=== PATIENT | female | born 1985 | race Hispanic/Latino ===

== ENCOUNTER 2016-04-29 05:39 | Inpatient (IN) | payer MEDICAID ==
[~2016-04-29] VITALS: Ht 152.4 cm; Wt 73.9 kg
[~2016-04-29 05:39] MED LIST: ASCO500T8 PO; Benzocaine TP; Docusate Sodium PO; FERR-74 PO; Hydrocodone/Acetaminophen PO; Ibuprofen PO; Lanolin TP; PREN1TAB73 PO; TUCPAD TP
[2016-04-29] MEDS ORDERED: Lactated Ringer's 1,000 ML IV SCH ×2 (09:48→10:43)
[2016-04-29] MEDS ORDERED: Lactated Ringer's 1,000 ML IV PRN (09:48)
[2016-04-29] MEDS ORDERED: Methylergonovine 0.2 mg/mL Inj IM PRN ×2 (09:50→15:40)
[2016-04-29] MEDS ORDERED: Ondansetron 2 mg/mL 2 mL Inj IVPUSH PRN ×2 (09:50→10:45)
[2016-04-29] MEDS ORDERED: Sodium Chloride LOK Flush 10 mL Syringe IVFLUSH PRN (09:50)
[2016-04-29] MEDS ORDERED: Hemorrhage Kit, Post Partum XX ONE ×2 (09:50→15:40)
[2016-04-29] MEDS ORDERED: fentaNYL-PF 50 mCg/mL 2 mL Inj IVPUSH PRN (09:50)
[2016-04-29] MEDS ORDERED: Oxytocin 10 Unit/mL Inj IM PRN ×2 (09:50→15:40)
[2016-04-29] MEDS ORDERED: Oxytocin 30 Units/500 mL LR 30 UNITS in IV Premix 1 EACH IV PRN ×2 (09:50→15:40)
[2016-04-29] MEDS ORDERED: Carboprost 250 mCg/mL Inj IM PRN ×2 (09:50→15:40)
[2016-04-29 10:27] LABS: Mean Corpuscular Volume 82.5 fL (81-100)
[2016-04-29] MEDS ORDERED: Lactated Ringer's 500 ML IV ONE (10:43)
[2016-04-29] MEDS ORDERED: fentaNYL 2 mCg/mL-Bupiv 0.125% 100 ML EPIDURAL SCH (10:45)
[2016-04-29] MEDS ORDERED: EPHEDrine Sulfate 50 mg/mL Inj IVPUSH PRN (10:45)
[2016-04-29] MEDS ORDERED: Atropine 1 mg/10 mL (Code) Syringe IVPUSH PRN (10:45)
[2016-04-29] MEDS: Lactated Ringer's 1,000 ML IV SCH ×2 (15:39→23:39)
[2016-04-29] MEDS ORDERED: Benzocaine (Dermoplast) 20% 60 Gm Spray TOPICAL PRN (15:40)
[2016-04-29] MEDS ORDERED: LANOlin HPA 7 Gm Ointment TOPICAL PRN (15:40)
[2016-04-29] MEDS ORDERED: Witch Hazel-Glycerin Pads TOPICAL PRN (15:40)
--- NOTE | 2016-04-29 16:01 | PCM.HPOB ---
Subjective Date of Service: Apr 29, 2016 Referring Provider: Admitting Physician: Michelle De MD Primary Care Physician: Michelle De MD Attending Physician: Michelle De MD Chief Complaint Active labor at 39 1//2 weeks History of Present History of Present Illness Patient is a very pleasant 31-year-old SA 1 L3 who has had regular care and woke at 0400 hrs. today with contractions. These picked up over the next several hours and she came to the center around breakfast. She was 2 cm and 75% effaced at that point with reassuring heart rate, and her membranes were intact. She got up and ambulated over the next several hours and progressed to 3 cm and was admitted. Pitocin augmentation was started as her contractions were still every 4-5 minutes apart and she got to Pitocin 7 mU/m. I came in and did artificial rupture of membranes for clear fluid at 1326 hrs. and she was 4-5 cm dilated at that point and this really picked up her contractions. heart rate baseline was in the 130s to 140s with good [id number] variability. She had consented for an epidural prior to this but was still coping well and did not want this at that point. Vaginal delivery was anticipated and estimated weight was 7-7-1/2 pounds. Weight gain in the has been 30 pounds and blood pressures have been normotensive throughout the . She does not have any history of gestational diabetes. OB History: (5), Term (3), (1), Living (3) Obstetrical Complications: None Past Medical History Obstetrical History: 1. She had a miscarriage in 2008 which passed spontaneously with no complications in the early first trimester. 2. Her first baby was born 11/10/2007 at 39-1/2 weeks gestational age. She had 17 hours of labor with an epidural and went onto spontaneous vaginal delivery of a live born female infant weighing 6-1/2 pounds. This was a healthy baby in and baby's name was " Roula". 3. Her next baby was born 12/26/2012 at 39 weeks gestational age with around 7 hours of labor. She had spontaneous vaginal delivery of a live born female infant weighing 6 lbs. 1 oz. She had retained products of placenta with manual removal at the bedside. Baby was healthy and her name was 4. Next baby was born 06/25/2014 at 40-1/2 weeks gestational age with around 5 hours of labor. She had spontaneous vaginal delivery of a live born female weighing 6 lbs. 13 oz. and she did have an epidural with this baby. and baby were healthy and her name is Ml Gynecologic History: She has not had any abnormal Pap smears or any STD's. Medical History: She has hayfever and environmental allergies with some intermittent lower back pain. She has had mild depression and anxiety tendencies and intermittent migraine headaches. She also had bilateral myringotomy tubes at the age of 13 for chronic ear infections. Surgical History: Her only surgical procedure has been bilateral myringotomy tubes placed at the age of 13 for recurrent otitis media. Social History: She is and lives with her . She has grade 8 education and is a aiic-pn-sdnu mother. She does also pick berries seasonally. Hx Tobacco Use: No Hx Alcohol Use: No Hx Substance Use: No Past Family History Living Arrangement: with Family Genetic Screening/Counseling Genetic Screening/Counseling: Negative Baby father-had child w defect: No Review of Systems Constitutional: Y: Change of appitite, Fever, Weakness Eyes: Denies: Blurred Vision, Double Vision, Vision Changes ENT: Denies: Dental Problems, Ear Pain, Nasal Congestion, Throat Pain, Ulcers/ Sores in Mouth Cardiovascular: Denies: Chest Pain Respiratory: Denies: Cough, SOB with Exertion Gastrointestinal: Denies: Abdominal Pain, Constipation, Diarrhea, Heartburn, Nausea, Vomiting Genitourinary: Denies: Dysuria, Hematuria Musculoskeletal: Denies: Redness, Swelling Skin/Breasts: Denies: Bruising, Discharge Skin: Denies: Jaundice Neurological: Denies: Change in Speech, Dizziness Psychologic: Denies: Agitation, Anxious, Apprehensive, Depression Hematologic: Denies: Adenopathy Allergy Coded Allergies: No Known Allergies (Verified Allergy, Unknown, 04/29/16) Exam Vital Signs Vital signs reviewed and are stable. Blood pressure 93/62-108/61 range. Heart rate 72-80 range and she is afebrile. Constitutional: Well-developed, Well-nourished, Normal habitus HEENT: PERRLA, Mucous Membr Moist/[place] Lungs: Clear to Auscultation, Normal Air Movement Heart: Regular Rate/Rhythm, Normal S1, Normal S2 Abdomen: Gravid, Normal bowel sounds, Soft, No tenderness Lymphatic: Normal: Neck Palpation of Nodes Extremities: Pulses Palpable x4, Warm, No Edema Neurological/Psychiatric: Alert, Oriented X3, No Acute Distress Neuro: Grossly Neurologically Intact Labs/Diagnostics Labs Her blood type is B+ with antibody screen being negative. Pap was normal. She is immune to varicella and rubella is also immune. RPR was nonreactive. Urine culture was negative. HIV was negative. Hepatitis B surface antigen was negative. Hepatitis C was less than 0.1. GC chlamydia was negative. HSV type I was positive for type II was negative. TSH was normal at 0.574. GGT was normal at 131 and group B strep was negative. Maternal Blood Type: B Hx Rho(D) Immune Globulin: No Antibody Screen: negative Group B Strep Results: Negative Previous Infant with GBS: No Rubella: Immune Lab History: Negative for: Hx Chicken Pox, Hx Gonorrhea, Hx HIV, Hx Herpes, Hx Syphilis OB Intrapartum Assessment/Plan Assessment Patient is a very pleasant 31-year-old SA 1 L3 at 39-1/2 weeks in active labor. Some Pitocin augmentation has been started and she is considering epidural. heart rate is reactive with baseline in the 130 to 140s and she has clear amniotic fluid on AROM. Estimated weight is around 7-1/2 pounds. Vaginal delivery is anticipated. Mother's coping well with her labor pains thus far. Problems: (1) with 39 completed weeks gestation Status: Acute ICD Code: Z3A.39 Pain Evaluation: Adequate Pain Control Michelle De MD Apr 29, 2016 15:56
--- NOTE | 2016-04-29 16:08 | PCM.OBVAG ---
Vaginal Delivery Date of Service Apr 29, 2016 Pre Operative Diagnosis Pre Operative Diagnosis 1. at 39-1/2 weeks with spontaneous labor 2. Pitocin augmentation of labor with AROM for clear fluid 3. Spontaneous vaginal delivery of a live born male infant Post Operative Diagnosis Post Operative Diagnosis 1. at 39-1/2 weeks with spontaneous labor 2. Pitocin augmentation of labor with AROM for clear fluid 3. of live born male Procedure Obstetical Procedure: Normal Spontaneous Vaginal Delivery, Repair of Perineal Tear (1st degree) Rn Digestive/Manager Of Case Management Provider and Manager Of Case Management: Dr. Michelle De Indication for Procedure Induction: Active labor, Pitocin augmentation, AROM, Progressed normally through labor Findings Obstetrical Findings: (Male), Cord (3 Vessel), Presentation (ESTELITA), 1 minute (9), 5 minutes (9), Placenta (Intact/Normal), Perineal Laceration (1st degree) Analgesia/Medications Obstetrical Anesthesia: IV pain medication, Local Procedure Details Procedure Details Patient is a very pleasant 31-year-old SA 1 L3 who has had regular care and an EDC of 05/02/2016 based on an 8 week ultrasound. Weight gain in the has been around 30 pounds and she has been normotensive throughout the with no gestational diabetes. She was admitted earlier today in labor and Pitocin augmentation was commenced and went to a maximum of 7 mU/m. AROM was done at 1326 hrs. for clear fluid and some normal show. She was 4 cm at that point and 90% effaced with vertex presentation at - 1 to spines. She progressed very rapidly over the next hour and did have fentanyl 50 g IV at 1400 hrs. She reached complete dilation at 1433 hrs. She went onto spontaneous vaginal delivery of a live born male with Apgars of 9 at 1 minute and 9 at 5 minutes. weight is pending at time of this dictation but is clinically 7-1/2-8 pound range. Placenta delivered intact with a three-vessel cord at 1447 hrs. Mother sustained a first-degree tear to the perineum which was repaired with 3-0 Vicryl to achieve good cosmesis and hemostasis. She also had a small first-degree tear to the clitoral merino which was somewhat vascular which was repaired with 4-0 Vicryl to achieve good cosmesis and hemostasis. Estimated blood loss at time of delivery was 350 mils. Baby was placed onto the maternal abdomen after delivery and delayed cord clamping was employed. Mother is intending to breast-feed and routine care is anticipated. Her first stage of labor was around 4-1/2 hours, second stage 11 minutes, and third stage was 3 minutes. Specimen Placenta appeared intact and was for routine disposal Blood Loss & Administration Estimated Blood Loss: 350 Blood Admin during procedure: No Post Procedure Plan Post delivery Condition: Mom stable Michelle De MD Apr 29, 2016 16:08
[2016-04-29] MEDS: HYDROcodone-APAP 5-325 mg Tablet PO PRN ×2 (16:34→20:25)
[2016-04-30 06:56] LABS: Mean Corpuscular Hemoglobin 27.2 pg (27.0-35.0); Mean Corpuscular Volume 83.9 fL (81-100)
[2016-04-30] MEDS: Lactated Ringer's 1,000 ML IV SCH (07:39)
[2016-04-30] MEDS: HYDROcodone-APAP 5-325 mg Tablet PO PRN ×3 (08:24→16:09)
--- NOTE | 2016-04-30 10:19 | PCM.DC.OB ---
Obstetrical Discharge Summary Date of Service Apr 30, 2016 Date of hospital admission Apr 29, 2016 at 08:03 Date of Discharge: Apr 30, 2016 Providers Admitting Physician: Michelle De MD Primary Care Physician: Michelle De MD Attending Physician: Michelle De MD Diagnosis at Time of Discharge 1. at 39 1/2 weeks with spontaneous labor 2. Pitocin augmentation of labor with AROM 3. of LBM Problems: (1) with 39 completed weeks gestation Status: Resolved ICD Code: Z3A.39 (2) (spontaneous vaginal delivery) Onset Date: 06/25/2014 Status: Acute ICD Code: O80 Brief History and Physical: Patient is a very pleasant 31-year-old SA 1 L3 who has had regular care and woke at 0400 hrs. today with contractions. These picked up over the next several hours and she came to the center around breakfast. She was 2 cm and 75% effaced at that point with reassuring heart rate, and her membranes were intact. She got up and ambulated over the next several hours and progressed to 3 cm and was admitted. Pitocin augmentation was started as her contractions were still every 4-5 minutes apart and she got to Pitocin 7 mU/m. I came in and did artificial rupture of membranes for clear fluid at 1326 hrs. and she was 4-5 cm dilated at that point and this really picked up her contractions. heart rate baseline was in the 130s to 140s with good mzua-wh-lynj variability. She had consented for an epidural prior to this but was still coping well and did not want this at that point. Vaginal delivery was anticipated and estimated weight was 7-7-1/2 pounds. Weight gain in the has been 30 pounds and blood pressures have been normotensive throughout the . She does not have any history of gestational diabetes. Hospital Course: Patient is a very pleasant 31-year-old SA 1 L3 who has had regular care and came into the center yesterday in active labor. She had Pitocin augmentation of same and went onto normal vaginal delivery of a live born male infant. weight was 8 pounds and Apgars were 9 at 1 minute and 9 at 5 minutes. Placenta delivered intact with a three-vessel cord and estimated blood loss at time of delivery was 350 mils. Mother did have a first- degree clitoral merino tear that was repaired with 4-0 Vicryl to achieve good cosmesis and hemostasis and another small first-degree perineal tear that was repaired with 3-0 Vicryl to achieve good cosmesis and hemostasis. Her first stage of labor was about 4-1/2 hours, second stage of labor was 11 minutes, and third stage of labor was 3 minutes. She is breast-feeding and bonding well with her baby and has good family supports. In the mother has been doing well. She has been up and ambulating and is voiding but has not yet stooled. She had some problems with constipation antenatally and Colace will be given for use at home. She has had moderate rubra lochia. She is able to comfortably flat her baby and he is has been feeding frequently. She has only been needing ibuprofen and a heating pad for pain. Vital signs have been stable and she has not had any fever. She feels ready to go home later this afternoon. ([Benzocaine]) 1 SPRAY/GM SPRAY 1 SPRAY TP PRN PRN PRN for perineal pain Prescribed by: MICHELLE DE MD ([Docusate Sodium]) 100 MG CAPSULE 100 MG PO DAILY Prescribed by: MICHELLE DE MD ([Hydrocodone/Acetaminophen]) 1 TAB TABLET 1-2 TAB PO Q4H PRN PRN For Pain Prescribed by: MICHELLE DE MD ([Ibuprofen]) 800 MG TABLET 800 MG PO Q6H PRN PRN For Pain Prescribed by: MICHELLE DE MD ([Lanolin]) 14 APPLIC/7 GM OINT 1 APPLIC TP PRN PRN PRN apply to nipples Prescribed by: MICHELLE DE MD Ascorbic Acid (Vitamin C) 500 Mg Tablet 500 MG PO DAILY Prescribed by: MICHELLE DE MD Ferrous Sulfate (Feosol) 325 Mg Tablet 325 MG PO DAILY Prescribed by: MICHELLE DE MD Vit/Iron Fumarate/FA ( Vitamin Tablet) 1 Each Tablet 1 EACH PO DAILY (Reported) Witch Mae/Glycerin (A.e.r Pads) 12 Towelette/Pkg Towelette 1 TOWELETTE TP PRN PRN PRN for perineal pain Prescribed by: MICHELLE DE,MD Discharge Medications: 1. Ibuprofen 800 mg by mouth 3 times daily as needed for pain 2. Colace 100 mg once or twice daily by mouth when necessary for constipation 3. Ferrous sulfate 325 mg by mouth daily for 3 months 4. vitamins 1 tab by mouth daily while breast-feeding. Disposition Mother and baby will be discharged home later today, and baby will be seen tomorrow in the office for first exam. Discharge Diet: No restrictions Discharge Activity-General: Pelvic Rest for 6 weeks, Try not to overdue, Be up and about, Balance rest and activity, Activity as pain allows, Activity as energy allows Patient instructions Please try and breast-feeding every 2-3 hours and make sure that you have a good latch as this promotes better milk production and is more comfortable for the nipples. Your milk will likely be coming in by or Thursday. Please drink plenty of water as this also helps improve your milk supply. Michelle De MD Apr 30, 2016 10:19
--- NOTE | 2016-04-30 10:22 | PCM.DIOB ---
Obstetrical Disch Instruction Date of Service: Apr 30, 2016 Dates of Hospitalization Date of Hospital Admission Apr 29, 2016 at 08:03 Providers Admitting Physician: Michelle De MD Primary Care Physician: Michelle De MD Attending Physician: Michelle De MD Discharge Diagnosis Discharge Diagnosis 1. at 39 1/2 weeks with spontaneous labor 2. Pitocin augmentation with AROM 3. of LBM infant Post Operative diagnosis 1. at 39 1/2 weeks with spontaneous labor 2. Pitocin augmentation with AROM 3. of LBM Problems: (1) with 39 completed weeks gestation Status: Resolved ICD Code: Z3A.39 (2) (spontaneous vaginal delivery) Onset Date: 06/25/2014 Status: Acute ICD Code: O80 Diet Discharge Diet: No restrictions Activity Discharge Activity-General: No restrictions, Pelvic Rest for 6 weeks, Try not to overdue, Be up and about, Balance rest and activity, Activity as pain allows , Activity as energy allows Dressing and Incisional Care Hygiene: May shower, Perineal care, Sitz bath, Dermoplast spray, Witch Mae pads, Ice Additional Instructions Discharge Instructions Please try and breast-feeding every 2-3 hours and make sure that you have a good latch as this promotes better milk production and is more comfortable for the nipples. Your milk will likely be coming in by or Thursday. Please drink plenty of water as this also helps improve your milk supply. Follow Up Plan Follow-up Provider (F9): Michelle De MD Follow-up appointment: Weeks (6) Call your provider for: Fever or Chills, Shortness of breath, Heavy vaginal bleeding, Epigastric pain, Excessive constipation, Vaginal discomfort, Red painful breasts Michelle De MD Apr 30, 2016 10:22
[2016-04-30] MEDS ORDERED: IBUP800T28 PO (10:25)
[2016-04-30] MEDS ORDERED: FERR-83 PO (10:25)
[2016-04-30] MEDS ORDERED: DOCU-41 PO (10:25)
[2016-04-30 10:27] VITALS: BP 102/53; PULSE 88; RESP 18
--- NOTE | 2016-04-30 14:29 | NUR ---
am shift notes pt is ambulating and voiding, lochia light to moderate, vss. Bonding well with baby, denies n/v, elect hot pack given for cramps and was effective. progressed to discharge, but states she will stay until after dinner.
== END 2016-04-30 21:00 | disposition home or self-care (01) | DRG 560 ==
LOC: FBCO 05:39 → FBC 08:03
PROVIDERS: ADMIT Family Medicine; ATTEND Family Medicine
PROC: 10E0XZZ Delivery of Products of Conception, External Approach (ICD-10-PCS; principal; 2016-04-29)
PROC: 0HQ9XZZ Repair Perineum Skin, External Approach (ICD-10-PCS; 2016-04-29)
DX: O70.0 First degree perineal laceration during delivery (principal); Z3A.39 39 weeks gestation of pregnancy; Z37.0 Single live birth